=== PATIENT | female | born 1980 | race Caucasian/White ===

== ENCOUNTER 2016-12-07 12:04 | Emergency (ER) | payer OTHER ==
[~2016-12-07] VITALS: Ht 165.1 cm; Wt 68.8 kg
[~2016-12-07 12:04] MED LIST: ABILIFY5 MG OR; AMOXICILLIN; AMOXICILLIN500 MG OR; AMOXICILLIN875 MG OR; AMOXIL500 MG OR; BACTRIM DS1 TAB PO; BENTYL10 MG OR; CIPRO500 MG OR; CIPROFLOXACN500 MG PO; CLINDAMYCIN300 MG OR; CONCEPT OB OR; EQL IBUPROFEN200 MG PO; FAMVIR500 MG OR; FIORICET PO; FLEXERIL OR; FLEXERIL5 MG PO; LEXAPRO10 MG PO; LEXAPRO20 MG OR; LORTAB 10 OR; LORTAB 5 OR; LORTAB 7.5 OR; LORTAB5 PO; LOTRISONE EX; MACRODANTIN100 MG PO; METROGEL VAG0.75 % VA; MONISTAT 72 % VA; MUPIROCIN2 % EX; NAPROSYN500 MG OR; NAPROSYN500 MG PO; NO HOME MEDS; NO MEDICATIONS; PENICILLN VK500 MG OR; PERCOCET 5/325M1 TAB OR; PREDNISONE10 MG PO; PRILOSEC20 MG/CAP PO; PYRIDIUM200 MG OR; TUBERSOL5 MG/0.1 M ID; ULTRAM50 M1 PO; ULTRAM50 MG; VICODIN ES1 TAB OR; WELLBUTRIN75 MG OR; ZOLOFT100 MG OR; [UNRECOGNIZED DRUG - MIXTURE] OP; tylenol
[2016-12-07 13:01] LABS: URINE BILIRUBIN - DIPSTICK NEGATIVE (NEGATIVE); URINE BLOOD DIPSTICK NEGATIVE (NEGATIVE); URINE CLARITY CLEAR; URINE COLOR YELLOW; URINE GLUCOSE - DIPSTICK NEGATIVE (NEGATIVE); URINE KETONE NEGATIVE (NEGATIVE); URINE LEUK ESTERASE NEGATIVE (NEGATIVE); URINE NITRITE - DIPSTICK NEGATIVE (Negative); URINE PROTEIN - DIPSTICK NEGATIVE (NEG-TRACE); URINE UROBILINOGEN - DIPSTICK 0.2 E.U./dL (0.2)
[2016-12-07 13:02] LABS: HEMATOCRIT 34.9 % (37.0-47.0); HEMOGLOBIN 11.8 g/dl (12.0-16.0); IMMATURE GRANULOCYTES 0.2 % (0.0-1.0); MEAN CELL VOLUME 92.6 fL CALC (80.0-100.0); MEAN CORPUSCULAR HGB 31.3 pG CALC (26.0-32.0); MEAN CORPUSCULAR HGB CONC 33.8 g/L CALC (32.0-36.0); NEUT# 3.01 thou/uL (2.00-7.15); RED BLOOD COUNT 3.77 mill/uL (4.20-5.60); RED CELL DISTRI WIDTH 11.7 % (11.5-15.5)
[2016-12-07 13:32] LABS: ALBUMIN 4.7 g/dL (3.2-5.0); ALKALINE PHOSPHATASE 46 u/l (38-126); ANION GAP 17 (6-22 (CALC)); BILIRUBIN, TOTAL 0.5 mg/dL (0.0-1.4); BUN 12 mg/dL (7-17); BUN/CREATININE RATIO 22 (12-20 (CALC)); CALCIUM 9.8 mg/dL (8.4-10.2); CARBON DIOXIDE 22 mmol/l (22-30); CHLORIDE 103 mmol/l (95-108); CREATININE 0.6 mg/dL (0.5-1.0); GFR > 60 ML/MIN (>=60 (CALC)); GFR FOR AFR.AMER. > 60 ML/MIN (>=60 (CALC)); GLUCOSE 100 mg/dL (65-105); POTASSIUM 4.3 mmol/l (3.5-5.1); SGOT/AST 22 u/l (14-36); SGPT/ALT 35 u/l (9-52); SODIUM 138 mmol/l (137-146); TOTAL PROTEIN 7.9 g/dL (6.3-8.2)
[2016-12-07 14:18] LABS: BETA-HCG, QUANT(RESULT NUMBER) 15300 mIU/mL
[2016-12-07 15:54] VITALS: BP 125/81
== END 2016-12-07 16:08 | disposition home or self-care (01) | DRG 781 ==
LOC: ED 12:04
PROVIDERS: Emergency Medicine
DX: O26.891 Other specified pregnancy related conditions, first trimester (principal); F17.200 Nicotine dependence, unspecified, uncomplicated; O99.331 Smoking (tobacco) complicating pregnancy, first trimester; Z3A.01 Less than 8 weeks gestation of pregnancy

== ENCOUNTER 2018-04-02 05:56 | Emergency (ER) | payer OTHER ==
[~2018-04-02] VITALS: Ht 165.1 cm; Wt 62.8 kg
[2018-04-02] MEDS ORDERED: FIORICET PO (06:49)
[2018-04-02 07:04] VITALS: BP 130/67
== END 2018-04-02 07:04 | disposition home or self-care (01) ==
LOC: ED 05:56
DX: G43.909 Migraine, unspecified, not intractable, without status migrainosus (principal); R11.0 Nausea; H53.149 Visual discomfort, unspecified

== ENCOUNTER 2018-09-09 13:30 | Emergency (ER) | payer OTHER ==
[~2018-09-09] VITALS: Ht 165.1 cm; Wt 59.6 kg
[2018-09-09 14:54] VITALS: BP 109/66
== END 2018-09-09 16:00 | disposition left against medical advice (07) ==
LOC: ED 13:30
DX: O26.899 Other specified pregnancy related conditions, unspecified trimester (principal); R10.31 Right lower quadrant pain; Z3A.00 Weeks of gestation of pregnancy not specified; Z91.19 Patient's noncompliance with other medical treatment and regimen

== ENCOUNTER 2020-02-19 18:31 | Emergency (ER) | payer OTHER ==
[2020-02-19 20:21] VITALS: BP 132/78
== END 2020-02-19 20:24 | disposition home or self-care (01) ==
LOC: ED 18:31
DX: S62.91XA Unspecified fracture of right hand, initial encounter for closed fracture (principal); X58.XXXA Exposure to other specified factors, initial encounter

== ENCOUNTER 2020-02-29 16:33 | Emergency (ER) | payer OTHER ==
[~2020-02-29] VITALS: Ht 165.1 cm; Wt 77.0 kg
[2020-02-29 17:25] VITALS: BP 131/79
== END 2020-02-29 17:25 | disposition home or self-care (01) ==
LOC: ED 16:33
DX: S62.91XD Unspecified fracture of right hand, subsequent encounter for fracture with routine healing (principal); X58.XXXD Exposure to other specified factors, subsequent encounter

== ENCOUNTER 2020-06-20 18:45 | Emergency (ER) | payer OTHER ==
[~2020-06-20] VITALS: Ht 165.1 cm; Wt 77.3 kg
[2020-06-20 20:12] VITALS: BP 121/71
== END 2020-06-20 20:12 | disposition home or self-care (01) ==
LOC: ED 18:45
DX: S63.616A Unspecified sprain of right little finger, initial encounter (principal); W22.09XA Striking against other stationary object, initial encounter; Y93.89 Activity, other specified; Y92.009 Unspecified place in unspecified non-institutional (private) residence as the place of occurrence of the external cause

== ENCOUNTER 2020-10-09 11:49 | Emergency (ER) | payer OTHER ==
[~2020-10-09] VITALS: Ht 165.1 cm; Wt 77.0 kg
[2020-10-09 12:23] LABS: HEMATOCRIT 41.8 % (37.0-47.0); HEMOGLOBIN 13.5 g/dl (12.0-16.0); IMMATURE GRANULOCYTES 0.5 % (0.0-5.0); MEAN CELL VOLUME 91.1 fL CALC (80.0-100.0); MEAN CORPUSCULAR HGB 29.4 pG CALC (26.0-32.0); MEAN CORPUSCULAR HGB CONC 32.3 g/dL CAL (32.0-36.0); NEUT# 4.48 thou/uL (2.00-7.15); RED BLOOD COUNT 4.59 mill/uL (4.20-5.60); RED CELL DISTRI WIDTH 12.8 % (11.5-15.5)
[2020-10-09 12:34] LABS: HCG SERUM/URINE (NEG/POS) NEGATIVE (NEGATIVE)
[2020-10-09 12:38] LABS: ALBUMIN 4.7 g/dL (3.2-5.0); ALKALINE PHOSPHATASE 72 u/l (38-126); ANION GAP 15 (6-22 (CALC)); BILIRUBIN, TOTAL 0.3 mg/dL (0.0-1.4); BUN 12 mg/dL (7-17); BUN/CREATININE RATIO 16 (12-20 (CALC)); CARBON DIOXIDE 24 mmol/l (22-30); CHLORIDE 104 mmol/l (95-108); CREATININE 0.7 mg/dL (0.5-1.0); GFR > 60 ML/MIN (>=60 (CALC)); GFR FOR AFR.AMER. > 60 ML/MIN (>=60 (CALC)); LIPASE 65 u/l (23-300); POTASSIUM 4.1 mmol/l (3.5-5.1); SGOT/AST 29 u/l (14-36); SODIUM 139 mmol/l (137-146); TOTAL PROTEIN 8.1 g/dL (6.3-8.2)
[2020-10-09] MEDS ORDERED: METHADONE HCL PO (12:41)
[2020-10-09] MEDS ORDERED: ONDANSETRON4 MG PO (14:54)
[2020-10-09 14:57] VITALS: BP 125/84
== END 2020-10-09 15:07 | disposition home or self-care (01) ==
LOC: ED 11:49
PROVIDERS: Family Medicine
DX: R10.13 Epigastric pain (principal); R11.2 Nausea with vomiting, unspecified; Z20.822 Contact with and (suspected) exposure to COVID-19
CPT/HCPCS: Q9967

== ENCOUNTER 2020-12-02 11:18 | Emergency (ER) | payer OTHER ==
[~2020-12-02] VITALS: Ht 165.1 cm; Wt 81.0 kg
[~2020-12-02 11:18] MED LIST changes: +METHADONE HCL PO; +ONDANSETRON4 MG PO
[2020-12-02] MEDS ORDERED: MOTRIN800 MG PO (13:37)
[2020-12-02 14:02] VITALS: BP 132/72
== END 2020-12-02 14:04 | disposition home or self-care (01) ==
LOC: ED 11:18
DX: S50.01XA Contusion of right elbow, initial encounter (principal); S53.401A Unspecified sprain of right elbow, initial encounter; W01.0XXA Fall on same level from slipping, tripping and stumbling without subsequent striking against object, initial encounter; Y93.E5 Activity, floor mopping and cleaning

== ENCOUNTER 2021-01-10 12:57 | Emergency (ER) | payer OTHER ==
[~2021-01-10 12:57] MED LIST changes: +MOTRIN800 MG PO
[2021-01-10 15:04] VITALS: BP 128/79
== END 2021-01-10 15:04 | disposition home or self-care (01) ==
LOC: ED 12:57
DX: S50.02XA Contusion of left elbow, initial encounter (principal); W01.0XXA Fall on same level from slipping, tripping and stumbling without subsequent striking against object, initial encounter; Y92.009 Unspecified place in unspecified non-institutional (private) residence as the place of occurrence of the external cause

== ENCOUNTER 2021-06-07 01:24 | Emergency (ER) | payer OTHER ==
[~2021-06-07] VITALS: Ht 165.1 cm; Wt 68.0 kg
[2021-06-07 02:53] VITALS: BP 144/71
== END 2021-06-07 03:06 | disposition home or self-care (01) ==
LOC: ED 01:24
DX: S80.01XA Contusion of right knee, initial encounter (principal); W01.0XXA Fall on same level from slipping, tripping and stumbling without subsequent striking against object, initial encounter; Y93.89 Activity, other specified; Y92.009 Unspecified place in unspecified non-institutional (private) residence as the place of occurrence of the external cause

== ENCOUNTER 2021-09-24 14:51 | Emergency (ER) | payer OTHER ==
[~2021-09-24] VITALS: Ht 165.1 cm; Wt 80.0 kg
[2021-09-24] MEDS ORDERED: METHADONE10 M1 PO (15:10)
[2021-09-24 16:51] LABS: HEMOGLOBIN 11.8 g/dl (12.0-16.0); IMMATURE GRANULOCYTES 0.5 % (0.0-5.0); MEAN CELL VOLUME 90.8 fL CALC (80.0-100.0); MEAN CORPUSCULAR HGB 30.1 pG CALC (26.0-32.0); MEAN CORPUSCULAR HGB CONC 33.1 g/dL CAL (32.0-36.0); NEUT# 6.66 thou/uL (2.00-7.15); RED BLOOD COUNT 3.92 mill/uL (4.20-5.60); RED CELL DISTRI WIDTH 12.5 % (11.5-15.5)
[2021-09-24 17:10] LABS: HEMATOCRIT 35.6 % (37.0-47.0)
[2021-09-24 17:11] LABS: ALKALINE PHOSPHATASE 54 u/l (38-126); AMYLASE 38 u/l (30-110); ANION GAP 10 (6-22 (CALC)); BUN 9 mg/dL (7-17); BUN/CREATININE RATIO 19 (12-20 (CALC)); CARBON DIOXIDE 24 mmol/l (22-30); CHLORIDE 105 mmol/l (95-108); CREATININE 0.5 mg/dL (0.5-1.0); GFR > 60 ML/MIN (>=60 (CALC)); GFR FOR AFR.AMER. > 60 ML/MIN (>=60 (CALC)); LIPASE 36 u/l (23-300); POTASSIUM 4.1 mmol/l (3.5-5.1); SGOT/AST 25 u/l (14-36); SODIUM 136 mmol/l (137-146); TOTAL PROTEIN 6.6 g/dL (6.3-8.2)
[2021-09-24 17:25] LABS: ALBUMIN 3.6 g/dL (3.2-5.0); BILIRUBIN, TOTAL 0.5 mg/dL (0.0-1.4)
[2021-09-24 18:50] VITALS: BP 110/65
== END 2021-09-24 18:45 | disposition home or self-care (01) ==
LOC: ED 14:51
PROVIDERS: Emergency Medicine
DX: O21.9 Vomiting of pregnancy, unspecified (principal); Z3A.00 Weeks of gestation of pregnancy not specified

== ENCOUNTER 2021-09-25 21:32 | Emergency (ER) | payer OTHER ==
[~2021-09-25] VITALS: Ht 165.1 cm; Wt 77.3 kg
[~2021-09-25 21:32] MED LIST changes: +METHADONE10 M1 PO
[2021-09-25 23:38] LABS: HEMATOCRIT 34.4 % (37.0-47.0); HEMOGLOBIN 11.7 g/dl (12.0-16.0); IMMATURE GRANULOCYTES 0.3 % (0.0-5.0); MEAN CELL VOLUME 88.9 fL CALC (80.0-100.0); MEAN CORPUSCULAR HGB 30.2 pG CALC (26.0-32.0); NEUT# 7.49 thou/uL (2.00-7.15); RED BLOOD COUNT 3.87 mill/uL (4.20-5.60); RED CELL DISTRI WIDTH 12.4 % (11.5-15.5)
[2021-09-25 23:55] LABS: ALBUMIN 3.9 g/dL (3.2-5.0); ALKALINE PHOSPHATASE 52 u/l (38-126); AMYLASE 39 u/l (30-110); BILIRUBIN, TOTAL 0.5 mg/dL (0.0-1.4); BUN 10 mg/dL (7-17); BUN/CREATININE RATIO 19 (12-20 (CALC)); CARBON DIOXIDE 26 mmol/l (22-30); CHLORIDE 103 mmol/l (95-108); CREATININE 0.5 mg/dL (0.5-1.0); GFR > 60 ML/MIN (>=60 (CALC)); GFR FOR AFR.AMER. > 60 ML/MIN (>=60 (CALC)); LIPASE 50 u/l (23-300); SGOT/AST 22 u/l (14-36); SODIUM 137 mmol/l (137-146)
[2021-09-26 00:06] LABS: ANION GAP 11 (6-22 (CALC)); POTASSIUM 3.2 mmol/l (3.5-5.1)
[2021-09-26 02:31] LABS: URINE BILIRUBIN - DIPSTICK NEGATIVE (NEGATIVE); URINE BLOOD DIPSTICK NEGATIVE (NEGATIVE); URINE COLOR YELLOW; URINE GLUCOSE - DIPSTICK NEGATIVE (NEGATIVE); URINE KETONE 40 mg/dL (NEGATIVE); URINE LEUK ESTERASE NEGATIVE (NEGATIVE); URINE PH 6.5 (4.5-8.0); URINE PROTEIN - DIPSTICK NEGATIVE (NEG-TRACE); URINE SPECIFIC GRAVITY <=1.005; URINE UROBILINOGEN - DIPSTICK 0.2 E.U./dL (0.2)
[2021-09-26 02:32] LABS: URINE NITRITE - DIPSTICK NEGATIVE (Negative)
[2021-09-26] MEDS ORDERED: PROMETHAZINE HY25 M1 PO (02:46)
[2021-09-26 03:22] VITALS: BP 118/80
== END 2021-09-26 03:48 | disposition home or self-care (01) ==
LOC: ED 21:32
PROVIDERS: Family Medicine
DX: O99.612 Diseases of the digestive system complicating pregnancy, second trimester (principal); K52.9 Noninfective gastroenteritis and colitis, unspecified; Z3A.16 16 weeks gestation of pregnancy

== ENCOUNTER 2021-12-22 12:10 | Emergency (ER) | payer OTHER ==
[~2021-12-22] VITALS: Ht 165.1 cm; Wt 77.0 kg
[2021-12-22] VITALS (8 sets, daily range): BP systolic 98–130; BP diastolic 41–74
[~2021-12-22 12:10] MED LIST changes: +PROMETHAZINE HY25 M1 PO
[2021-12-22 12:55] LABS: HEMATOCRIT 29.1 % (37.0-47.0); HEMOGLOBIN 9.7 g/dl (12.0-16.0); IMMATURE GRANULOCYTES 0.5 % (0.0-5.0); MEAN CELL VOLUME 89.8 fL CALC (80.0-100.0); MEAN CORPUSCULAR HGB 29.9 pG CALC (26.0-32.0); MEAN CORPUSCULAR HGB CONC 33.3 g/dL CAL (32.0-36.0); NEUT# 6.9 thou/uL (2.00-7.15); RED BLOOD COUNT 3.24 mill/uL (4.20-5.60)
[2021-12-22 13:11] LABS: ALBUMIN 3.3 g/dL (3.2-5.0); BUN 5 mg/dL (7-17); BUN/CREATININE RATIO 14 (12-20 (CALC)); CHLORIDE 108 mmol/l (95-108); CREATININE 0.4 mg/dL (0.5-1.0); GFR > 60 ML/MIN (>=60 (CALC)); GFR FOR AFR.AMER. > 60 ML/MIN (>=60 (CALC)); POTASSIUM 2.9 mmol/l (3.5-5.1); SGOT/AST 21 u/l (14-36); SODIUM 137 mmol/l (137-146); TOTAL PROTEIN 6.2 g/dL (6.3-8.2)
[2021-12-22 13:24] LABS: ALKALINE PHOSPHATASE 82 u/l (38-126); ANION GAP 12 (6-22 (CALC)); BILIRUBIN, TOTAL 0.2 mg/dL (0.0-1.4); CARBON DIOXIDE 20 mmol/l (22-30)
[2021-12-22] MEDS ORDERED: ROBITUSSIN200 MG/10 PO (13:59)
[2021-12-22] MEDS ORDERED: KEFLEX500 MG PO (13:59)
== END 2021-12-22 14:37 | disposition home or self-care (01) ==
LOC: ED 12:10
PROVIDERS: Emergency Medicine
DX: J06.9 Acute upper respiratory infection, unspecified (principal); Z33.1 Pregnant state, incidental; R05.9 Cough, unspecified; R06.02 Shortness of breath; J02.9 Acute pharyngitis, unspecified

== ENCOUNTER 2022-01-02 14:48 | Emergency (ER) | payer OTHER ==
[~2022-01-02] VITALS: Ht 165.1 cm; Wt 78.9 kg
[2022-01-02] VITALS (8 sets, daily range): BP systolic 111–144; BP diastolic 39–80
[~2022-01-02 14:48] MED LIST changes: +KEFLEX500 MG PO; +ROBITUSSIN200 MG/10 PO
[2022-01-02 15:27] LABS: HEMATOCRIT 33.8 % (37.0-47.0); HEMOGLOBIN 11.3 g/dl (12.0-16.0); MEAN CELL VOLUME 88.9 fL CALC (80.0-100.0); MEAN CORPUSCULAR HGB 29.7 pG CALC (26.0-32.0); MEAN CORPUSCULAR HGB CONC 33.4 g/dL CAL (32.0-36.0); NEUT# 8.15 thou/uL (2.00-7.15); RED BLOOD COUNT 3.8 mill/uL (4.20-5.60)
[2022-01-02 15:34] LABS: ALBUMIN 3.8 g/dL (3.2-5.0); ALKALINE PHOSPHATASE 87 u/l (38-126); ANION GAP 11 (6-22 (CALC)); BILIRUBIN, TOTAL 0.2 mg/dL (0.0-1.4); BUN 7 mg/dL (7-17); BUN/CREATININE RATIO 16 (12-20 (CALC)); CARBON DIOXIDE 19 mmol/l (22-30); CHLORIDE 109 mmol/l (95-108); CREATININE 0.4 mg/dL (0.5-1.0); GFR > 60 ML/MIN (>=60 (CALC)); GFR FOR AFR.AMER. > 60 ML/MIN (>=60 (CALC)); LIPASE 48 u/l (23-300); SGOT/AST 20 u/l (14-36); SODIUM 135 mmol/l (137-146)
[2022-01-02 15:40] LABS: POTASSIUM 3.7 mmol/l (3.5-5.1)
== END 2022-01-02 17:02 | disposition home or self-care (01) ==
LOC: ED 14:48
PROVIDERS: Family Medicine
DX: O26.893 Other specified pregnancy related conditions, third trimester (principal); R10.13 Epigastric pain; O99.283 Endocrine, nutritional and metabolic diseases complicating pregnancy, third trimester; E03.9 Hypothyroidism, unspecified; K29.70 Gastritis, unspecified, without bleeding; O99.613 Diseases of the digestive system complicating pregnancy, third trimester; Z3A.30 30 weeks gestation of pregnancy

== ENCOUNTER 2022-09-05 08:40 | Emergency (ER) | payer OTHER ==
[~2022-09-05] VITALS: Ht 165.1 cm; Wt 75.0 kg
[2022-09-05 08:46] VITALS: BP 134/89
[2022-09-05] MEDS ORDERED: CIPROFLOXACN500 MG PO (08:52)
[2022-09-05 09:47] LABS: URINE BILIRUBIN - DIPSTICK NEGATIVE (NEGATIVE); URINE BLOOD DIPSTICK NEGATIVE (NEGATIVE); URINE COLOR YELLOW; URINE GLUCOSE - DIPSTICK NEGATIVE (NEGATIVE); URINE KETONE NEGATIVE (NEGATIVE); URINE LEUK ESTERASE NEGATIVE (NEGATIVE); URINE PH 5.5 (4.5-8.0); URINE PROTEIN - DIPSTICK 100 mg/dL (NEG-TRACE); URINE SPECIFIC GRAVITY >=1.030; URINE UROBILINOGEN - DIPSTICK 0.2 E.U./dL (0.2)
[2022-09-05 09:48] LABS: URINE EPITHELIAL CELLS FEW EPI/hpf (0-FEW); URINE NITRITE - DIPSTICK NEGATIVE (Negative)
[2022-09-05 09:49] LABS: URINE MUCUS MODERATE hpf (NONE-FEW)
[2022-09-05] MEDS ORDERED: PYRIDIUM200 MG PO (13:09)
[2022-09-05] MEDS ORDERED: LIDOCAINE HCL VIS2 % TOP (13:09)
[2022-09-05] MEDS ORDERED: BACTRIM DS1 TAB PO (13:09)
== END 2022-09-05 13:30 | disposition home or self-care (01) ==
LOC: ED 08:40
PROVIDERS: Emergency Medicine
DX: N34.2 Other urethritis (principal); E03.9 Hypothyroidism, unspecified